=== PATIENT | female | born 1990 | race Caucasian/White ===

== ENCOUNTER 2022-05-15 23:34 | Emergency (ER) | payer OTHER ==
[2022-05-16 00:45] LABS: BASOPHIL 0.6 % (0-2); EOSINOPHIL 3.5 % (0-5); HCT 38.5 % (37.0-47.0); HGB 11.6 g/dl (12.5-16.0); LYMPHOCYTE 31.8 % (15-48); MCH 28.2 pg (25.0-31.0); MCHC 30.1 g/dL (32.0-36.0); MCV 93.4 fL (78.0-100.0); MONOCYTE 4.1 % (0-12); MPV 10.8 fL (6.0-9.5); NEUTROPHIL 59.5 % (41-80); NRBC 0; PLT 252 K/uL (150-400); RBC 4.12 M/uL (4.20-5.40); RDW 14.8 % (11.5-14.0); WBC 8.6 K/uL (4.0-10.5)
[2022-05-16 00:56] LABS: INR 1.02 (0.9-1.2); PROTHROMBIN TIME 13.1 SECONDS (11.9-13.9); PTT 26.9 SECONDS (24.9-34.6)
[2022-05-16 01:17] LABS: ALBUMIN 3.1 g/dL (3.4-5.0); BILIRUBIN - TOTAL 0.3 mg/dL (0.2-1.0); BUN/CREAT RATIO (CALC) 21.7 RATIO; CREATININE 0.69 mg/dL (0.51-0.95); POTASSIUM 3.6 mmol/L (3.5-5.1); TOTAL PROTEIN 7.1 g/dL (6.4-8.2)
== END 2022-05-16 03:45 | disposition home or self-care (01) ==
LOC: FER 23:34
PROVIDERS: Emergency Medicine
DX: O99.891 Other specified diseases and conditions complicating pregnancy (principal); O99.43 Diseases of the circulatory system complicating the puerperium; N93.8 Other specified abnormal uterine and vaginal bleeding; I10 Essential (primary) hypertension; Z88.8 Allergy status to other drugs, medicaments and biological substances; Z79.899 Other long term (current) drug therapy
CPT/HCPCS: 36415; 76817; 80053; 84702; 85025; 85610; 85730; 86850; 86900; 86901; J7030